=== PATIENT | male | born 1985 | race Asian ===

== ENCOUNTER 2020-10-27 04:34 | Emergency (ER) | payer OTHER ==
[~2020-10-27] VITALS: Ht 170.2 cm; Wt 86.2 kg
[~2020-10-27 04:34] MED LIST: NORCO 5-325 TA1 EACH PO
[2020-10-27] MEDS ORDERED: FLOMAX0.4 MG PO (05:56)
[2020-10-27] MEDS ORDERED: NORCO5 PO (05:56)
[2020-10-27] MEDS ORDERED: ZOFRAN ODT4 MG PO (05:56)
[2020-10-27 05:57] LABS: ABSOLUTE NEUTROPHILS 3.6 thou/uL (1.4-8.2); BASOPHILS 0.7 % (0.0-2.0); EOSINOPHILS 3.6 % (0.0-3.0); HEMATOCRIT 45.2 % (42.0-52.0); HEMOGLOBIN 15.1 gm/dL (14.0-18.0); LYMPHOCYTES 41.8 % (24.0-44.0); MCH 29.7 pg (26.0-34.0); MCHC 33.5 g/dL (28.0-37.0); MCV 88.7 fL (80.0-100.0); MONOCYTES 12.8 % (1.0-8.0); PLATELET COUNT 211 thou/uL (150-400); POLYS 41.1 % (36.0-66.0); RBC 5.09 mil/uL (4.50-6.00); RDW 12.9 % (10.5-14.5); WBC 8.7 thou/uL (4.0-11.0)
[2020-10-27 06:03] LABS: POTASSIUM 3.5 mmol/L (3.5-5.1)
[2020-10-27 06:10] LABS: ALBUMIN 3.8 g/dL (3.4-5.0); TOTAL BILIRUBIN 0.4 mg/dL (0.2-1.0); TOTAL PROTEIN 7.7 g/dL (6.4-8.2)
[2020-10-27 06:34] LABS: URINE BILIRUBIN NEGATIVE (Negative); URINE BLOOD 3+ (Negative); URINE COLOR YELLOW; URINE GLUCOSE-RANDOM* NEGATIVE (Negative); URINE KETONES NEGATIVE (Negative); URINE LEUKOCYTES-REFLEX NEGATIVE (Negative); URINE NITRITE-REFLEX NEGATIVE (Negative); URINE PROTEIN (DIPSTICK) NEGATIVE (Negative); URINE SPECIFIC GRAVITY >= 1.030 (1.005-1.035); URINE UROBILINOGEN 0.2 E.U./dl (0.2-1.0)
[2020-10-27 06:38] LABS: URINE CLARITY HAZY
[2020-10-27 07:18] VITALS: BP 127/89
[2020-10-27 07:21] LABS: CALCIUM OXALATE 0-3 Few /LPF (None Seen); CASTS None Seen /LPF (None Seen); SQUAMOUS None Seen /LPF (0-3); URINE WBC-REFLEX 0-5 Rare /HPF (0-5)
[2020-10-27 07:22] LABS: BACTERIA-REFLEX 1-9 Few /HPF (None Seen)
== END 2020-10-27 07:20 | disposition home or self-care (01) ==
LOC: ER 04:34
PROVIDERS: Emergency Medicine
DX: N20.0 Calculus of kidney (principal)